=== PATIENT | female | born 1965 | race African-American/Black ===

== ENCOUNTER 2017-11-21 13:46 | Emergency (ER) | payer OTHER ==
[~2017-11-21] VITALS: Ht 160 cm; Wt 96.0 kg
[~2017-11-21 13:46] MED LIST: FIORICET,ESG1 TABLET PO; METHADONE5 MG PO; MOBIC15 MG PO; NAPROSYN500 MG PO; PREDNISONE20 MG PO; REGLAN10 MG PO; ULTRACET1 TABLET PO; blood pressure med
[2017-11-21 14:50] LABS: HEMATOCRIT 38.5 % (36.0-46.0); HEMOGLOBIN 12.4 G/DL (11.9-15.5); MCH 29.5 PG (29.0-34.0); MCHC 32.2 G/DL (30.0-36.0); MCV 91.4 FL (83-99); PLATELET COUNT 232 K/uL (156-360); RBC DIS.WIDTH-SD 47.5 % (39-53); RED BLOOD COUNT 4.21 M/uL (3.80-5.20); WHITE BLOOD COUNT 6.8 K/uL (4.1-10.2)
[2017-11-21 15:01] LABS: CHLORIDE 105 mEq/L (99-109); POTASSIUM 4.3 mEq/L (3.7-5.4); SODIUM 142 mEq/L (136-147)
[2017-11-21 15:02] LABS: GLUCOSE 88 mg/dL (70-99)
[2017-11-21 15:06] LABS: CREATININE 0.8 mg/dL (0.6-1.3); GFR ESTIMATE (CALCULATED) > 59 mL/min/
[2017-11-21 15:07] LABS: UREA NITROGEN (BUN) 12 mg/dL (9-23)
[2017-11-21 15:10] LABS: TROP-I INTERPRETATION NEGATIVE; TROPONIN-I < 0.01 ng/mL (0.0-0.30)
[2017-11-21] MEDS ORDERED: DOLOPHINE HCL5 MG PO (16:43)
[2017-11-21] MEDS ORDERED: AUGMENTIN875 MG PO (17:01)
[2017-11-21 17:05] LABS: TROP-I INTERPRETATION NEGATIVE; TROPONIN-I < 0.01 ng/mL (0.0-0.30)
[2017-11-21] MEDS ORDERED: CATAPRES0.1 MG PO (18:29)
[2017-11-21 19:00] VITALS: BP 183/110
== END 2017-11-21 19:02 | disposition home or self-care (01) ==
LOC: EME 13:46
PROVIDERS: Nurse Practitioner Family
DX: J32.9 Chronic sinusitis, unspecified (principal); I10 Essential (primary) hypertension; R07.9 Chest pain, unspecified; F17.200 Nicotine dependence, unspecified, uncomplicated; Z82.49 Family history of ischemic heart disease and other diseases of the circulatory system
CPT/HCPCS: 70450; 71046; 80048; 84484; 85027; 93005; 99281; 99284